=== PATIENT | female | born 1990 | race Caucasian/White ===

== ENCOUNTER → 2021-02-18 | Outpatient (CLI) | payer OTHER ==
[~2021-02-18] MED LIST: BIOTIN5 M1 PO; MELOXICAM15 MG PO; TIZANIDINE HCL2 M1 PO
== END ==
LOC: M.PC 09:50
PROVIDERS: ATTEND Physical Medicine & Rehabilitation
DX: M51.26 Other intervertebral disc displacement, lumbar region (principal); M79.604 Pain in right leg; M79.605 Pain in left leg; M79.18 Myalgia, other site